=== PATIENT | male | born 1965 | race Caucasian/White ===

== ENCOUNTER → 2020-11-25 | Outpatient (CLI) | payer OTHER, BC ==
[~2020-11-25] MED LIST: BACTRIM DS TAB1 EACH PO; ECOTRIN81 MG PO; FLAX SEED OIL1000 MG PO; FLONASE 0.05% N16 GM; HYDROCHLOROTHIA25 MG PO; MULTIVITAMINS1 EAC1 PO; NAPROXEN PO; NIACIN ER500 MG PO; PRINIVIL10 MG PO; SINGULAIR10 MG PO; VINEGAR PO; ZANTAC150 MG PO; ZYRTEC10 MG PO; [UNRECOGNIZED DRUG - OTHER] PO
== END ==
LOC: RAD 15:00
DX: S96.912A Strain of unspecified muscle and tendon at ankle and foot level, left foot, initial encounter (principal); S82.65XA Nondisplaced fracture of lateral malleolus of left fibula, initial encounter for closed fracture; S96.992A Other specified injury of unspecified muscle and tendon at ankle and foot level, left foot, initial encounter; M77.8 Other enthesopathies, not elsewhere classified; M77.32 Calcaneal spur, left foot; M19.072 Primary osteoarthritis, left ankle and foot; W19.XXXA Unspecified fall, initial encounter
CPT/HCPCS: 73610; 73630

== ENCOUNTER → 2020-11-28 | Outpatient (CLI) | payer OTHER | LOC: KOH-I 14:17 | DX: M25.372 Other instability, left ankle (principal); R60.0 Localized edema; M89.8X7 Other specified disorders of bone, ankle and foot; M67.874 Other specified disorders of tendon, left ankle and foot | CPT/HCPCS: 73721 ==

== ENCOUNTER 2021-01-15 18:19 | Emergency (ER) | payer OTHER ==
[~2021-01-15 18:19] MED LIST changes: -BACTRIM DS TAB1 EACH PO
== END 2021-01-15 21:00 | disposition home or self-care (01) ==
LOC: ER1 18:19
DX: S80.02XA Contusion of left knee, initial encounter (principal); S70.12XA Contusion of left thigh, initial encounter; I10 Essential (primary) hypertension; Z79.82 Long term (current) use of aspirin; Z88.6 Allergy status to analgesic agent; W22.8XXA Striking against or struck by other objects, initial encounter; Y92.009 Unspecified place in unspecified non-institutional (private) residence as the place of occurrence of the external cause
CPT/HCPCS: 29530; 73564; 99283

== ENCOUNTER 2021-01-19 20:09 | Emergency (ER) | payer OTHER ==
[2021-01-19 20:53] LABS: HEMOGLOBIN 14.4 gm/dl (14.0-17.5); RED BLOOD COUNT 4.97 M/UL (4.20-5.50); WHITE BLOOD COUNT 7.2 K/UL (4.5-11.0)
[2021-01-19 21:13] LABS: BUN/CREATININE RATIO 13 (0-10)
[2021-01-19] MEDS ORDERED: BACTRIM DS TAB1 EACH PO (23:10)
== END 2021-01-20 00:02 | disposition home or self-care (01) ==
LOC: ER1 20:09
PROVIDERS: Physician Assistant
DX: S80.02XA Contusion of left knee, initial encounter (principal); L03.116 Cellulitis of left lower limb; E87.6 Hypokalemia; R73.9 Hyperglycemia, unspecified; E78.5 Hyperlipidemia, unspecified; I10 Essential (primary) hypertension; Z79.899 Other long term (current) drug therapy; W22.8XXA Striking against or struck by other objects, initial encounter; Y92.009 Unspecified place in unspecified non-institutional (private) residence as the place of occurrence of the external cause
CPT/HCPCS: 73590; 80053; 85025; 90471; 90715; 99283

== ENCOUNTER → 2021-01-20 | Outpatient (CLI) | payer OTHER ==
[~2021-01-20] MED LIST changes: +BACTRIM DS TAB1 EACH PO
== END ==
LOC: US 14:01
DX: R22.42 Localized swelling, mass and lump, left lower limb (principal)
CPT/HCPCS: 93971

== ENCOUNTER → 2021-08-02 | Outpatient (CLI) | payer OTHER | LOC: HEART 5 07:30 | DX: M79.661 Pain in right lower leg (principal); M79.662 Pain in left lower leg ==